=== PATIENT | male | born 1955 | race American Indian/Alaskan Native ===

== ENCOUNTER 2020-03-15 15:47 | Emergency (ER) | payer MEDICARE ==
[2020-03-15 16:04] VITALS: BP 151/86
--- NOTE | 2020-03-15 22:02 | Emergency Department Report ---
<JONNLUIS - Last Filed: 03/15/20 22:03> ED Male HPI - General Chief complaint: Urogenital-Male Stated complaint: CANT EMPTY BLADDER Time Seen by Provider: 03/15/20 19:00 Source: patient Mode of arrival: Ambulatory Limitations: No Limitations - History of Present Illness Initial comments: 64-year-old F [place] male presents emergency department complaining of a dysuria which started on this past Saturday and and progressively worsening on yesterday and did not improve today he is able to make urine but reports i ncreasing burning sensation with decreased production when he is able to create no testicular pain or swelling no hematuria is noticed no trauma. Ports no fevers, chills, sweats he is due to follow-up with the specialist in 2 days. Mora he could not wait because of the amount of pressure he was feeling in his bladder. MD Complaint: dysuria -: Gradual, days(s) (2) Location: penis Radiation: none Severity: mild Quality: burning, dull Consistency: constant Improves with: none Worsens with: urination dysuria. denies: swelling, rash, blood in urine, fever, nausea/vomiting, incontinence - Related Data Previous Rx's Medication Instructions Recorded Last Taken Type Phenazopyridine [Pyridium] 200 mg PO PC #9 tablet 03/15/20 Unknown Rx Tamsulosin [Flomax] 0.4 mg PO QDAY #10 cap 03/15/20 Unknown Rx levoFLOXacin [Levaquin TAB] 500 mg PO QDAY 10 Days #10 tablet 03/15/20 Unknown Rx Allergies Allergy/AdvReac Type Severity Reaction Status Date / Time No Known Allergies Allergy Unverified 03/15/20 15:59 ED Review of Systems Comment: All other systems reviewed and negative ED Past Medical Hx - Past Medical History Hx Hypertension: Yes Hx Diabetes: Yes - Surgical History Additional Surgical History: Turp procedure, neck repair - Social History Smoking Status: Never Smoker Substance Use Type: None - Medications Home Medications: Home Medications Medication Instructions Recorded Confirmed Last Taken Type Phenazopyridine [Pyridium] 200 mg PO PC #9 tablet 03/15/20 Unknown Rx Tamsulosin [Flomax] 0.4 mg PO QDAY #10 cap 03/15/20 Unknown Rx levoFLOXacin [Levaquin TAB] 500 mg PO QDAY 10 Days #10 tablet 03/15/20 Unknown Rx ED Physical Exam - General Limitations: No Limitations General appearance: alert, in no apparent distress - Head Head exam: Present: atraumatic, normocephalic - Eye Eye exam: Present: normal appearance, PERRL, EOMI Pupils: Present: normal accommodation - ENT ENT exam: Present: mucous membranes moist - Neck Neck exam: Present: normal inspection - Respiratory Respiratory exam: Present: normal lung sounds bilaterally. Absent: respiratory distress - Cardiovascular Cardiovascular Exam: Present: regular rate, normal rhythm. Absent: systolic murmur, diastolic murmur, rubs, gallop - GI/Abdominal GI/Abdominal exam: Present: soft, tenderness (Suprapubic area no CVA tenderness is noted.), normal bowel sounds. Absent: distended - Rectal Rectal exam: Present: deferred - Extremities Exam Extremities exam: Present: normal inspection - Back Exam Back exam: Present: normal inspection - Neurological Exam Neurological exam: Present: alert, oriented X3 - Psychiatric Psychiatric exam: Present: normal affect, normal mood - Skin Skin exam: Present: warm, dry, intact, normal color. Absent: rash ED Medical Decision Making - Medical Decision Making [age]-year-old -[place] male resents emerged department complaining of progressively worsening dysuria. We performed a bladder scan which only showed 140 cc of urine needed to be evacuated. We obtained a urinalysis. Still awaiting test results will passed patient off to [facility] ED Disposition Clinical Impression: UTI (urinary tract infection) Qualifiers: Urinary tract infection type: acute cystitis Hematuria presence: without hematuria Qualified Code(s): N30.00 - Acute cystitis without hematuria Disposition: TO HOME OR SELFCARE Condition: Stable Instructions: Urinary Tract Infection in Men (ED) Additional Instructions: follow up urology as scheduled, return to emergency if unable to urinate. Prescriptions: Tamsulosin [Flomax] 0.4 mg PO QDAY #10 cap levoFLOXacin [Levaquin TAB] 500 mg PO QDAY 10 Days #10 tablet Phenazopyridine [Pyridium] 200 mg PO PC #9 tablet Referrals: EL MCCORD MD [Staff Physician] - JUAN <JOYCE CUEVAS - Last Filed: 03/15/20 23:51> ED Review of Systems ROS: Stated complaint: CANT EMPTY BLADDER Other details as noted in HPI ED Course Vital Signs 03/15/20 16:02 Temperature 98.5 F Pulse Rate 84 Respiratory 20 Rate Blood Pressure 151/86 [Right] O2 Sat by Pulse 99 Oximetry ED Medical Decision Making - Lab Data Labs 03/15/20 22:24 Urine Color Yellow Urine Turbidity Slightly-cloudy Urine pH 5.0 Ur Specific [place] 1.031 H Urine Protein 100 mg/dl Urine Glucose (UA) Neg Urine Ketones Neg Urine Blood Mod Urine Nitrite Neg Urine Bilirubin Neg Urine Urobilinogen 2.0 Ur Leukocyte Esterase Mod Urine WBC (Auto) > 182.0 H Urine RBC (Auto) 46.0 U Epithel Cells (Auto) 1.0 Urine Mucus 3+ - Medical Decision Making pt voiding without difficulty at this time, will follow up with urology dc'd to home with rx for flomax, pyridium, levaquin, pt declines further evaluation or ct renals , denies hx of renal stones, no fever , no chills, advised to return to ed if symptoms worsen or unable to void. Critical care attestation.: If time is entered above; I have spent that time in minutes in the direct care of this critically ill patient, excluding procedure time. ED Disposition Is pt being admited?: No Does the pt Need Aspirin: No Time of Disposition: 23:49
[2020-03-15 22:49] LABS: Bilirubin,Urine NEG (Negative); Blood,Urine MOD (Negative); Color,Urine Yellow (Yellow); Mucus,Urine 3+ /HPF
[2020-03-15 22:50] LABS: WBC,Urine > 182.0 /HPF (0.0-6.0)
== END 2020-03-15 23:55 | disposition home or self-care (01) ==
LOC: ED 15:47
DX: N39.0 Urinary tract infection, site not specified (principal); Z79.899 Other long term (current) drug therapy
CPT/HCPCS: 81001